=== PATIENT | male | born 1960 | race Caucasian/White ===

== ENCOUNTER 2020-11-12 20:24 | Inpatient (IN) | payer BC, SELFPAY ==
[~2020-11-12] VITALS: Ht 190.5 cm; Wt 104.0 kg
[2020-11-12 20:33] VITALS: BP_SYST 239
[2020-11-12] MEDS ORDERED: cloNIDine HCL 0.1 MG TABLET PO ONE ×4 (21:15→23:15)
[2020-11-12 21:20] LABS: BASOPHILS % (AUTO) 0.4 % (0.0-2.0); EOSINOPHILS # (AUTO) 0.3 K/uL (0.0-0.4); EOSINOPHILS % (AUTO) 3.1 % (0.0-4.0); HEMATOCRIT 45.1 % (36-54); HEMOGLOBIN 15.1 g/dL (14.0-18.0); LYMPHOCYTES # (AUTO) 1.6 K/uL (1.0-5.5); LYMPHOCYTES % (AUTO) 17.8 % (20.5-51.5); MEAN CORPUSCULAR HEMOGLOBIN 31 pg (27-31); MEAN CORPUSCULAR HGB CONC 34 % (32-36); MEAN CORPUSCULAR VOLUME 93 fL (79.0-98.0); MONOCYTES # (AUTO) 0.5 K/uL (0.0-1.0); MONOCYTES % (AUTO) 6.2 % (1.7-9.3); NEUTROPHILS # (AUTO) 6.4 K/uL (1.8-7.7); NEUTROPHILS % (AUTO) 72.5 % (40.0-70.0); PLATELET COUNT (AUTO) 135 K/uL (130-430); RED BLOOD CELL COUNT(AUTO) 4.86 MIL/uL (4.2-6.2); RED CELL DISTRIBUTION WIDTH 13.1 % (9.0-15.0); WHITE BLOOD COUNT (AUTO) 8.7 K/uL (4.8-10.8)
[2020-11-12 21:27] LABS: CALCIUM 9.1 mg/dL (8.4-11.0); CREATININE 1.65 mg/dL (0.55-1.30); POTASSIUM 3.7 mmol/L (3.5-5.1)
[2020-11-12 21:33] LABS: ALBUMIN 3.3 g/dL (3.4-4.8); TOTAL BILIRUBIN 0.5 mg/dL (0.0-1.0)
[2020-11-12 21:59] LABS: BILIRUBIN,URINE NEGATIVE (NEGATIVE); BLOOD, URINE 2+ (NEGATIVE); CLARITY/URINE CLEAR (CLEAR); COLOR,URINE YELLOW (YELLOW); GLUCOSE,URINE NEGATIVE (NEGATIVE); KETONES,URINE NEGATIVE (NEGATIVE); LEUKOCYTE ESTERASE ,URINE NEGATIVE (NEGATIVE); NITRITE, URINE NEGATIVE (NEGATIVE); PH,URINE 6.5 (5.0-8.0); PROTEIN URINE 1+ (NEGATIVE); UROBILINOGEN,URINE 0.2 (0.2-1.0)
[2020-11-12 22:06] LABS: BACTERIA,URINE FEW /HPF (None Seen); MUCUS,URINE None Seen /LPF (None Seen); WBC,URINE NONE SEEN /HPF (0-3)
[2020-11-12] MEDS ORDERED: HYDROCHLOROTHIAZIDE 25 MG TABLET (HCTZ) ONE (22:14)
[2020-11-12] MEDS ORDERED: hydrALAZINE HCL 25 MG TABLET PO ONE (22:15)
[2020-11-12] MEDS ORDERED: cloNIDine HCL 0.2 MG TABLET ONE (23:45)
[2020-11-13] VITALS (7 sets, daily range): BP systolic 144–160
[2020-11-13] MEDS ORDERED: ASPIRIN 325 MG TABLET PO ONE (01:00)
[2020-11-13] MEDS ORDERED: hydrALAZINE HCL 20 MG/ML VIAL IVP PRN (01:15)
[2020-11-13] MEDS ORDERED: hydrALAZINE HCL 20 MG/ML VIAL IVP ONE (01:15)
[2020-11-13] MEDS ORDERED: hydrALAZINE HCL 25 MG TABLET PO ONE (01:15)
[2020-11-13] MEDS ORDERED: hydrALAZINE HCL 25 MG TABLET ONE (01:36)
[2020-11-13] MEDS ORDERED: amLODIPine BESYLATE 10 MG TABLET PO ONE (03:15)
[2020-11-13] MEDS: amLODIPine BESYLATE 10 MG TABLET PO SCH (08:11)
[2020-11-13] MEDS ORDERED: hydrALAZINE HCL 25 MG TABLET PO SCH (09:00)
[2020-11-13] MEDS ORDERED: ONDANSETRON HCL 4 MG/2 ML VIAL IVP PRN (10:30)
[2020-11-13] MEDS ORDERED: ACETAMINOPHEN 325 MG TABLET PO PRN (10:30)
[2020-11-13] MEDS ORDERED: traMADol HCL HCL 50 MG TABLET (ULTRAM) PO PRN (10:30)
[2020-11-13] MEDS ORDERED: NITROGLYCERIN 0.4 MG TAB.SUBL SL PRN (10:30)
[2020-11-13 10:47] LABS: BASOPHILS % (AUTO) 0.2 % (0.0-2.0); EOSINOPHILS # (AUTO) 0.1 K/uL (0.0-0.4); EOSINOPHILS % (AUTO) 1.1 % (0.0-4.0); HEMATOCRIT 52.8 % (36-54); HEMOGLOBIN 17.4 g/dL (14.0-18.0); LYMPHOCYTES # (AUTO) 1.4 K/uL (1.0-5.5); LYMPHOCYTES % (AUTO) 11.6 % (20.5-51.5); MEAN CORPUSCULAR HEMOGLOBIN 31 pg (27-31); MEAN CORPUSCULAR HGB CONC 33 % (32-36); MEAN CORPUSCULAR VOLUME 93 fL (79.0-98.0); MONOCYTES # (AUTO) 0.6 K/uL (0.0-1.0); MONOCYTES % (AUTO) 5.1 % (1.7-9.3); NEUTROPHILS # (AUTO) 9.6 K/uL (1.8-7.7); PLATELET COUNT (AUTO) 179 K/uL (130-430); RED BLOOD CELL COUNT(AUTO) 5.67 MIL/uL (4.2-6.2); RED CELL DISTRIBUTION WIDTH 13.4 % (9.0-15.0); WHITE BLOOD COUNT (AUTO) 11.8 K/uL (4.8-10.8)
[2020-11-13] MEDS ORDERED: METOPROLOL SUCCINATE 50 MG TAB.SR.24H (TOPROL XL) PO ONE (11:15)
[2020-11-13 11:25] LABS: CALCIUM 9.8 mg/dL (8.4-11.0); CREATININE 1.39 mg/dL (0.55-1.30); POTASSIUM 3.8 mmol/L (3.5-5.1)
[2020-11-13 13:48] LABS: BARBITURATE, URINE NEGATIVE (NEG <=200); BENZODIAZEPINE, URINE NEGATIVE (NEG <=150); CANNABINOID, URINE NEGATIVE (NEG <=50); COCAINE, URINE NEGATIVE (NEG <=150); METHAMPHETAMINES SCREEN,URINE NEGATIVE (NEG <=500); OPIATE, URINE NEGATIVE (NEG <=100); PHENCYCLIDINE SCREEN,URINE NEGATIVE (NEG <=25); UR TRICYCLIC ANTIDEPRESSANTS NEGATIVE (NEG <=300); URINE AMPHETAMINE NEGATIVE (NEG <=500); URINE METHADONE NEGATIVE (NEG <=200); URINE OXYCODONE SCREEN NEGATIVE (NEG <=100); URINE PROPOXYPHENE SCREEN NEGATIVE (NEG <=300)
[2020-11-13] MEDS: hydrALAZINE HCL 25 MG TABLET PO SCH ×2 (15:25→21:07)
[2020-11-14 00:20] VITALS: BP_SYST 141; BP_SYST 146
[2020-11-14 06:27] LABS: BASOPHILS % (AUTO) 0.4 % (0.0-2.0); EOSINOPHILS # (AUTO) 0.1 K/uL (0.0-0.4); EOSINOPHILS % (AUTO) 0.9 % (0.0-4.0); HEMATOCRIT 47.8 % (36-54); HEMOGLOBIN 15.7 g/dL (14.0-18.0); LYMPHOCYTES # (AUTO) 1.8 K/uL (1.0-5.5); LYMPHOCYTES % (AUTO) 14.1 % (20.5-51.5); MEAN CORPUSCULAR HEMOGLOBIN 31 pg (27-31); MEAN CORPUSCULAR HGB CONC 33 % (32-36); MEAN CORPUSCULAR VOLUME 94 fL (79.0-98.0); MONOCYTES # (AUTO) 0.9 K/uL (0.0-1.0); MONOCYTES % (AUTO) 7.6 % (1.7-9.3); NEUTROPHILS # (AUTO) 9.6 K/uL (1.8-7.7); PLATELET COUNT (AUTO) 178 K/uL (130-430); RED BLOOD CELL COUNT(AUTO) 5.11 MIL/uL (4.2-6.2); RED CELL DISTRIBUTION WIDTH 13.3 % (9.0-15.0); WHITE BLOOD COUNT (AUTO) 12.4 K/uL (4.8-10.8)
[2020-11-14 06:47] LABS: ALBUMIN 3.2 g/dL (3.4-4.8); CALCIUM 9.2 mg/dL (8.4-11.0); CREATININE 1.67 mg/dL (0.55-1.30); FREE T4 (FREE THYROXINE) 1.1 ng/dl (0.8-1.5); PHOSPHORUS 3.2 mg/dL (2.7-4.5); POTASSIUM 3.7 mmol/L (3.5-5.1); THYROID STIMULATING HORMONE 1.32 uIu/mL (0.36-3.74); TOTAL BILIRUBIN 1.5 mg/dL (0.0-1.0)
[2020-11-14 08:00] VITALS: BP_SYST 183
[2020-11-14] MEDS: amLODIPine BESYLATE 10 MG TABLET PO SCH (08:38)
[2020-11-14] MEDS: ASPIRIN 81 MG TABLET(ECOTRIN) PO SCH (08:39)
[2020-11-14] MEDS: hydrALAZINE HCL 25 MG TABLET PO SCH ×3 (08:39→21:03)
[2020-11-14] MEDS ORDERED: METOPROLOL SUCCINATE 50 MG TAB.SR.24H (TOPROL XL) PO SCH (09:00)
[2020-11-14 11:28] VITALS: BP_SYST 177
[2020-11-14 14:52] VITALS: BP_SYST 173
[2020-11-14] MEDS ORDERED: ATORVASTATIN 20 MG TABLET PO SCH (21:00)
[2020-11-14] MEDS: METOPROLOL SUCCINATE 50 MG TAB.SR.24H (TOPROL XL) PO SCH (21:02)
[2020-11-15 00:09] VITALS: BP_SYST 130
[2020-11-15 06:19] LABS: BASOPHILS % (AUTO) 0.2 % (0.0-2.0); EOSINOPHILS % (AUTO) 0.3 % (0.0-4.0); HEMATOCRIT 47.6 % (36-54); HEMOGLOBIN 15.6 g/dL (14.0-18.0); MEAN CORPUSCULAR HEMOGLOBIN 31 pg (27-31); MEAN CORPUSCULAR HGB CONC 33 % (32-36); MEAN CORPUSCULAR VOLUME 94 fL (79.0-98.0); MONOCYTES # (AUTO) 0.9 K/uL (0.0-1.0); MONOCYTES % (AUTO) 7.3 % (1.7-9.3); NEUTROPHILS # (AUTO) 9.8 K/uL (1.8-7.7); NEUTROPHILS % (AUTO) 76.2 % (40.0-70.0); PLATELET COUNT (AUTO) 185 K/uL (130-430); RED BLOOD CELL COUNT(AUTO) 5.07 MIL/uL (4.2-6.2); RED CELL DISTRIBUTION WIDTH 13.8 % (9.0-15.0); WHITE BLOOD COUNT (AUTO) 12.8 K/uL (4.8-10.8)
[2020-11-15 06:40] LABS: ALBUMIN 3.2 g/dL (3.4-4.8); CALCIUM 9.2 mg/dL (8.4-11.0); CREATININE 1.84 mg/dL (0.55-1.30); POTASSIUM 3.6 mmol/L (3.5-5.1); TOTAL BILIRUBIN 1.5 mg/dL (0.0-1.0)
[2020-11-15 08:00] VITALS: BP_SYST 169
[2020-11-15] MEDS: ASPIRIN 81 MG TABLET(ECOTRIN) PO SCH (08:50)
[2020-11-15] MEDS: hydrALAZINE HCL 25 MG TABLET PO SCH (08:51)
[2020-11-15] MEDS: amLODIPine BESYLATE 10 MG TABLET PO SCH (08:52)
[2020-11-15] MEDS: METOPROLOL SUCCINATE 50 MG TAB.SR.24H (TOPROL XL) PO SCH (08:52)
[2020-11-15] MEDS ORDERED: METO-542 PO (10:39)
[2020-11-15] MEDS ORDERED: NOR10 PO (10:39)
[2020-11-15] MEDS ORDERED: HYDR-4038 PO (10:39)
[2020-11-15] MEDS ORDERED: LIP20 PO (10:39)
[2020-11-15] MEDS ORDERED: Aspirin Ec PO (10:39)
[2020-11-15] MEDS ORDERED: ASPI-859 PO (10:40)
[2020-11-15 11:19] VITALS: BP_SYST 142
[2020-11-15 11:47] VITALS: BP_SYST 142
== END 2020-11-15 11:55 | disposition home or self-care (01) | DRG 682 ==
LOC: SED 20:24 → STU 11-13 01:04
PROVIDERS: ADMIT Internal Medicine; ATTEND Internal Medicine
DX: I12.9 Hypertensive chronic kidney disease with stage 1 through stage 4 chronic kidney disease, or unspecified chronic kidney disease (principal); I21.A1 Myocardial infarction type 2; N18.4 Chronic kidney disease, stage 4 (severe); N17.9 Acute kidney failure, unspecified; E44.1 Mild protein-calorie malnutrition; R65.10 Systemic inflammatory response syndrome (SIRS) of non-infectious origin without acute organ dysfunction; K80.20 Calculus of gallbladder without cholecystitis without obstruction; Z82.49 Family history of ischemic heart disease and other diseases of the circulatory system; Z87.891 Personal history of nicotine dependence; Z91.14 Patient's other noncompliance with medication regimen
CPT/HCPCS: 36415; 71045; 76770; 80048; 80053; 80061; 80307; 81000; 82550; 83735; 83880; 84100; 84439; 84443; 84484; 85025; 93005; 93306; 96374; 99285; G0378; J0360

== ENCOUNTER 2020-11-25 19:11 | Emergency (ER) | payer BC, SELFPAY ==
[~2020-11-25] VITALS: Ht 182.9 cm; Wt 81.6 kg
[~2020-11-25 19:11] MED LIST: ASPI-859 PO; Aspirin Ec PO; HYDR-4038 PO; LIP20 PO; METO-542 PO; NOR10 PO
[2020-11-25 19:20] VITALS: BP_SYST 116
[2020-11-25 20:50] LABS: BILIRUBIN,URINE NEGATIVE (NEGATIVE); BLOOD, URINE NEGATIVE (NEGATIVE); CLARITY/URINE CLEAR (CLEAR); COLOR,URINE YELLOW (YELLOW); GLUCOSE,URINE NEGATIVE (NEGATIVE); KETONES,URINE NEGATIVE (NEGATIVE); LEUKOCYTE ESTERASE ,URINE NEGATIVE (NEGATIVE); NITRITE, URINE NEGATIVE (NEGATIVE); PH,URINE 5.5 (5.0-8.0); PROTEIN URINE TRACE (NEGATIVE); UROBILINOGEN,URINE 0.2 (0.2-1.0)
[2020-11-25 21:02] LABS: BACTERIA,URINE FEW /HPF (None Seen); RBC,URINE NONE SEEN /HPF (0-3); WBC,URINE 0-3 /HPF (0-3)
[2020-11-25 21:03] LABS: MUCUS,URINE None Seen /LPF (None Seen)
[2020-11-25 21:42] LABS: EOSINOPHILS # (AUTO) 0.3 K/uL (0.0-0.4); HEMOGLOBIN 15.3 g/dL (14.0-18.0); NEUTROPHILS # (AUTO) 6.5 K/uL (1.8-7.7)
[2020-11-25 21:47] LABS: CALCIUM 9.5 mg/dL (8.4-11.0); CREATININE 1.95 mg/dL (0.55-1.30); POTASSIUM 4.6 mmol/L (3.5-5.1)
[2020-11-25 21:48] LABS: BASOPHILS % (AUTO) 0.4 % (0.0-2.0); EOSINOPHILS % (AUTO) 3.7 % (0.0-4.0); HEMATOCRIT 44.8 % (36-54); LYMPHOCYTES # (AUTO) 0.4 K/uL (1.0-5.5); LYMPHOCYTES % (AUTO) 4.8 % (20.5-51.5); MEAN CORPUSCULAR HEMOGLOBIN 32 pg (27-31); MEAN CORPUSCULAR HGB CONC 34 % (32-36); MEAN CORPUSCULAR VOLUME 93 fL (79.0-98.0); MONOCYTES # (AUTO) 0.5 K/uL (0.0-1.0); MONOCYTES % (AUTO) 6.1 % (1.7-9.3); PLATELET COUNT (AUTO) 123 K/uL (130-430); RED BLOOD CELL COUNT(AUTO) 4.81 MIL/uL (4.2-6.2); RED CELL DISTRIBUTION WIDTH 13.6 % (9.0-15.0); WHITE BLOOD COUNT (AUTO) 7.6 K/uL (4.8-10.8)
[2020-11-25 21:52] LABS: ALBUMIN 3.5 g/dL (3.4-4.8); TOTAL BILIRUBIN 0.9 mg/dL (0.0-1.0)
[2020-11-25] MEDS ORDERED: ACETAMINOPHEN 500 MG TABLET PO ONE (23:45)
[2020-11-26 01:55] VITALS: BP_SYST 116
== END 2020-11-26 01:55 | disposition home or self-care (01) ==
LOC: SED 19:11
DX: J06.9 Acute upper respiratory infection, unspecified (principal); I10 Essential (primary) hypertension; Z79.899 Other long term (current) drug therapy; Z20.822 Contact with and (suspected) exposure to COVID-19
CPT/HCPCS: 36415; 71045; 80053; 81000; 83605; 85025; 87040-TC; 99284